=== PATIENT | male | born 1975 | race Caucasian/White ===

== ENCOUNTER 2025-03-10 09:37 | Outpatient (CLI) | payer OTHER, SELFPAY ==
--- NOTE | 2025-03-10 09:53 | XR_ITS ---
WS: [id number] LEFT SHOULDER: 2 VIEW(S) TECHNIQUE: Internal and external rotation. HISTORY: LEFT ARM NUMBNESS TINGLING/L SHOULDER PAIN COMPARISON: None available. No fracture or dislocation or soft tissue abnormality. Mild AC joint narrowing. No calcific deposits. Visualized LEFT upper lung field is clear. XR/XR shoulder LT min 2V* [id number] IMPRESSION: Mild LEFT AC joint arthritis.
== END 2025-03-10 09:38 | disposition home or self-care (01) ==
PROVIDERS: PCP Nurse Practitioner Family; Visit Provider Nurse Practitioner Family
DX: M19.012 Primary osteoarthritis, left shoulder (principal)
CPT/HCPCS: 73030